=== PATIENT | female | born 1945 | race Caucasian/White ===

== ENCOUNTER 2024-11-22 11:36 | Observation (INO) | payer MEDICARE ==
--- NOTE | 2024-11-22 13:01 | CT ---
EXAMINATION TYPE: CT brain wo con DATE OF EXAM: 11/22/2024 COMPARISON: None. CLINICAL INDICATION: Female, 78 years old with history of weakness; PHH, weakness TECHNIQUE: CT scan of the head is performed without contrast. CT DLP: 1110 mGycm Automated exposure control for dose reduction was used. FINDINGS: There is no acute intracranial hemorrhage or midline shift identified. There is mild diff use ventricular and sulcal prominence consistent with diffuse age-related cerebral atrophy. There is [id number] low-attenuation in the deep and periventricular white matter most likely consiste nt with chronic small vessel ischemic change in patient of this age. Bilateral aphakia is present. Ri ght mastoid surgical change is noted. The visualized sinuses are clear. IMPRESSION: No acute intracranial hemorrhage or midline shift. There is mild diffuse age-related ce rebral atrophy and moderate to advanced probable chronic small vessel ischemic change noted. [facility], , 11/22/2024 12:59 PM
--- NOTE | 2024-11-22 13:03 | XR ---
EXAMINATION TYPE: XR chest 2V DATE OF EXAM: 11/22/2024 12:43 PM COMPARISON: None CLINICAL INDICATION: Female, 78 years old with history of Weakness, , TECHNIQUE: AP and lateral views FINDINGS: Heart borderline in size, probably accentuated due to AP technique. Mild interstitial density is pres ent. No consolidation or pleural effusion. Vertebroplasty change at multiple levels. Chronic ununited fracture proximal right humerus. IMPRESSION: Interstitial prominence. Consider bronchitis, asthma, or pulmonary vascular congestion. [facility], Workstation: [facility], 11/22/2024 1:01 PM
[2024-11-22] MEDS: diphenhydrAMINE 50 MG/ML 1 ML VIAL IVP STA (13:13)
[2024-11-22] MEDS: METOCLOPRAMIDE 5 MG/ML 2 ML VIAL IVP STA (13:15)
[2024-11-22] MEDS: DEXAMETHASONE SOD PHOSPHATE 10 MG/ML 1 ML VIAL IVP STA (13:16)
[2024-11-22 13:32] LABS: Basophils % (A) 0 %; Eosinophils # (A) 0.2 k/uL (0-0.7); Eosinophils % (A) 2 %; HCT 35.6 % (34.0-46.0); HGB 11.6 gm/dL (11.4-16.0); Lymphocytes # (A) 4.1 k/uL (1.0-4.8); Lymphocytes % (A) 31 %; MCH 30.1 pg (25.0-35.0); MCHC 32.6 g/dL (31.0-37.0); MCV 92.3 fL (80.0-100.0); Mean Platelet Volume 8.4; Monocytes # (A) 0.6 k/uL (0-1.0); Monocytes % (A) 5 %; Neutrophils % (A) 61 %; Platelet Count 395 k/uL (150-450); RBC 3.86 m/uL (3.80-5.40); RDW 14.1 % (11.5-15.5); WBC 13.1 k/uL (3.8-10.6)
[2024-11-22 13:41] LABS: Partial Thromboplastin Time 22.5 sec (22.0-30.0); Prothrombin Time 11.4 sec (10.0-12.5)
[2024-11-22 13:43] LABS: ALT 11 U/L (4-34); AST 22 U/L (14-36); African American GFR (CKD) 47 (>60 ml/min/1.73 sqM); Albumin 3.4 g/dL (3.5-5.0); Alkaline Phosphatase 104 U/L (38-126); Anion Gap 8 mmol/L; Blood Urea Nitrogen 16 mg/dL (7-17); Calcium 9.2 mg/dL (8.4-10.2); Carbon Dioxide 29 mmol/L (22-30); Chloride 101 mmol/L (98-107); Glucose 139 mg/dL (74-99); Non-African American GFR(CKD) 41 (>60 ml/min/1.73 sqM); Potassium 4.4 mmol/L (3.5-5.1); Sodium 138 mmol/L (137-145); Total Bilirubin 0.4 mg/dL (0.2-1.3); Total Protein 6.3 g/dL (6.3-8.2)
--- NOTE | 2024-11-22 13:47 | ED ---
Weakness HPI - General Chief complaint: Weakness Stated complaint: Slurred speech,Weakness Time Seen by Provider: 11/22/24 12:01 Source: patient, EMS Mode of arrival: EMS Limitations: no limitations - History of Present Illness Initial comments: 78-year-old female to the emergency department with confusion, headache. Daughter is at bedside and helps supplement the history. States that the patient just was recently hospitalized at [facility] on . She had a fall with head injury and was diagnosed with a brain bleed. They repeated several CAT scans which demonstrated no change in the bleed and the patient was discharged to a nursing facility in the [facility]. Yesterday the patient had a decline in her mental status. Daughter states that her words are trailing off when she tries to finish a sentence. She was trying to drink from the TV remote. States that it is typical for her to not know the date but this is significantly exacerbated from baseline. The patient has also been complaining of a headache for 3 days. Reports that the headache is in the occipital region. She did take some Tylenol without any improvement in her symptoms. She reports to generalized weakness. Denies any lateralizing weakness. She is incontinent. No reported fevers. No new falls. She was started on Keppra at the last hospitalization. No other alleviating, precipitating or modifying factors - Related Data Allergies Allergy/AdvReac Type Severity Reaction Status Date / Time No Known Allergies Allergy Verified 11/22/24 11:52 Review of Systems ROS Statement: Those systems with pertinent positive or pertinent negative responses have been documented in the HPI. ROS Other: All systems not noted in ROS Statement are negative. Past Medical History Past Medical History: Dementia, Diabetes Mellitus Additional Past Medical History / Comment(s): CHF History of Any Multi-Drug Resistant Organisms: None Reported Past Psychological History: No Psychological Hx Reported Smoking Status: Former smoker Past Alcohol Use History: None Reported Past Drug Use History: None Reported General Exam Limitations: no limitations Course Vital Signs 11/22/24 11/22/24 11/22/24 11:44 11:55 13:00 Temperature 98.5 F Pulse Rate 82 87 Respiratory 20 15 Rate Blood Pressure 134/71 132/63 O2 Sat by Pulse 97 Oximetry Medical Decision Making - Medical Decision Making Was pt. sent in by a medical professional or institution (, PA, NURSING SERVICE ADMINISTRATOR, urgent care, hospital, or skilled nursing...) When possible be specific @ -[No] Did you speak to anyone other than the patient for history (EMS, parent, family, police, friend...)? What history was obtained from this source @ -[No] Did you review nursing and triage notes (agree or disagree)? Why? @ -[I reviewed and agree with nursing and triage notes] Were old charts reviewed (outside hosp., previous admission, EMS record, old EKG, old radiological studies, urgent care reports/EKG's, skilled nursing records)? Report findings @ -[No old charts were reviewed] Differential Diagnosis (chest pain, altered mental status, abdominal pain women, abdominal pain men, vaginal bleeding, weakness, fever, dyspnea, syncope, headache, dizziness, GI bleed, back pain, seizure, CVA, palpatations, mental health, musculoskeletal)? @ -[not applicable] EKG interpreted by me (3pts min.). @ -Yes and demonstrates sinus rhythm with a rate of 83. Parable 184. QRS 143. QTc of 459. Left anterior fascicular block. Right bundle branch block. No acute ST segment elevations X-rays interpreted by me (1pt min.). @ -[None done] CT interpreted by me (1pt min.). @ -[None done] U/S interpreted by me (1pt. min.). @ -[None done] What testing was considered but not performed or refused? (CT, X-rays, U/S, labs)? Why? @ -[None] What meds were considered but not given or refused? Why? @ -[None] Did you discuss the management of the patient with other professionals (professionals i.e. , PA, NURSING SERVICE ADMINISTRATOR, lab, RT, psych nurse, medical social consultant, roving weight gauger, teacher, aadc plans staff officer, geriatric case manager)? Give summary @ -[No] Was smoking cessation discussed for >3mins.? @ -[No] Was critical care preformed (if so, how long)? @ -[No] Were there social determinants of health that impacted care today? How? (Homelessness, low income, unemployed, alcoholism, drug addiction, transportation, low edu. Level, literacy, decrease access to med. care, alf, rehab)? @ -[No] Was there de-escalation of care discussed even if they declined (Discuss DNR or withdrawal of care, Hospice)? DNR status @ -[No] What co-morbidities impacted this encounter? (DM, HTN, Smoking, COPD, CAD, Cancer, CVA, ARF, Chemo, Hep., AIDS, mental health diagnosis, sleep apnea, morbid obesity)? @ -[None] Was patient admitted / discharged? Hospital course, mention meds given and rou te, prescriptions, significant lab abnormalities, going to OR and other pertinent info. @ -[hospital course] Undiagnosed new problem with uncertain prognosis? @ -[No] Drug Therapy requiring intensive monitoring for toxicity (Heparin, Nitro, Insulin, Cardizem)? @ -[No] Were any procedures done? @ -[No] Diagnosis/symptom? @ -[default] Acute, or Chronic, or Acute on Chronic? @ -[default] Uncomplicated (without systemic symptoms) or Complicated (systemic symptoms)? @ -[default] Side effects of treatment? @ -[No] Exacerbation, Progression, or Severe Exacerbation? @ -[No] Poses a threat to life or bodily function? How? (Chest pain, USA, PA, pneumonia, PE, COPD, DKA, ARF, appy, cholecystitis, CVA, Diverticulitis, Homicidal, Suicidal, threat to staff... and all critical care pts) @ -[No] - Lab Data Result diagrams: 11/22/24 13:12 11/22/24 13:12 Lab Results 11/22/24 11/22/24 11/22/24 Range/Units 13:12 13:12 13:12 WBC 13.1 H (3.8-10.6) k/uL RBC 3.86 (3.80-5.40) m/uL Hgb 11.6 (11.4-16.0) gm/dL Hct 35.6 (34.0-46.0) % MCV 92.3 (80.0-100.0) fL MCH 30.1 (25.0-35.0) pg MCHC 32.6 (31.0-37.0) g/dL RDW 14.1 (11.5-15.5) % Plt Count 395 (150-450) k/uL MPV 8.4 Neutrophils % 61 % Lymphocytes % 31 % Monocytes % 5 % Eosinophils % 2 % Basophils % 0 % Neutrophils # 8.0 H (1.3-7.7) k/uL Lymphocytes # 4.1 (1.0-4.8) k/uL Monocytes # 0.6 (0-1.0) k/uL Eosinophils # 0.2 (0-0.7) k/uL Basophils # 0.0 (0-0.2) k/uL PT 11.4 (10.0-12.5) sec INR 1.0 (<1.2) APTT 22.5 (22.0-30.0) sec Sodium 138 (137-145) mmol/L Potassium 4.4 (3.5-5.1) mmol/L Chloride 101 (98-107) mmol/L Carbon Dioxide 29 (22-30) mmol/L Anion Gap 8 mmol/L BUN 16 (7-17) mg/dL Creatinine 1.27 H (0.52-1.04) mg/dL Est GFR (CKD-EPI)AfAm 47 (>60 ml/min/1.73 sqM) Est GFR (CKD-EPI)NonAf 41 (>60 ml/min/1.73 sqM) Glucose 139 H (74-99) mg/dL Plasma Lactic Acid Prabhu (0.7-2.0) mmol/L Calcium 9.2 (8.4-10.2) mg/dL Total Bilirubin 0.4 (0.2-1.3) mg/dL AST 22 (14-36) U/L ALT 11 (4-34) U/L Alkaline Phosphatase 104 (38-126) U/L Troponin I (0.000-0.034) ng/mL Total Protein 6.3 (6.3-8.2) g/dL Albumin 3.4 L (3.5-5.0) g/dL 11/22/24 11/22/24 Range/Units 13:12 13:12 WBC (3.8-10.6) k/uL RBC (3.80-5.40) m/uL Hgb (11.4-16.0) gm/dL Hct (34.0-46.0) % MCV (80.0-100.0) fL MCH (25.0-35.0) pg MCHC (31.0-37.0) g/dL RDW (11.5-15.5) % Plt Count (150-450) k/uL MPV Neutrophils % % Lymphocytes % % Monocytes % % Eosinophils % % Basophils % % Neutrophils # (1.3-7.7) k/uL Lymphocytes # (1.0-4.8) k/uL Monocytes # (0-1.0) k/uL Eosinophils # (0-0.7) k/uL Basophils # (0-0.2) k/uL PT (10.0-12.5) sec INR (<1.2) APTT (22.0-30.0) sec Sodium (137-145) mmol/L Potassium (3.5-5.1) mmol/L Chloride (98-107) mmol/L Carbon Dioxide (22-30) mmol/L Anion Gap mmol/L BUN (7-17) mg/dL Creatinine (0.52-1.04) mg/dL Est GFR (CKD-EPI)AfAm (>60 ml/min/1.73 sqM) Est GFR (CKD-EPI)NonAf (>60 ml/min/1.73 sqM) Glucose (74-99) mg/dL Plasma Lactic Acid Prabhu 3.0 H* (0.7-2.0) mmol/L Calcium (8.4-10.2) mg/dL Total Bilirubin (0.2-1.3) mg/dL AST (14-36) U/L ALT (4-34) U/L Alkaline Phosphatase (38-126) U/L Troponin I <0.012 (0.000-0.034) ng/mL Total Protein (6.3-8.2) g/dL Albumin (3.5-5.0) g/dL Disposition Clinical Impression: Encephalopathy acute, Dysarthria Disposition: ADMITTED IP TO THIS [facility] Condition: Stable Is patient prescribed a controlled substance at d/c from ED?: No Referrals: Nonstaff,Physician [REFERRING] - 1-2 days Time of Disposition: 14:55 Decision to Admit Reason: Admit from EC Decision Date: 11/22/24 Decision Time: 14:55
[2024-11-22] MEDS ORDERED: ACETAMINOPHEN TAB 325 MG TAB PO PRN (15:30)
[2024-11-22] MEDS ORDERED: NALOXONE 0.4 MG/ML 1 ML VIAL IV PRN (15:30)
[2024-11-22 18:01] LABS: Appearance,Urine Cloudy (Clear); Bacteria,Urine Many /hpf; Bilirubin,Urine Negative (Negative); Blood,Urine Negative (Negative); Color,Urine Yellow; Glucose,Urine (UA) Negative (Negative); Ketones,Urine Negative (Negative); Leukocyte Esterase,Urine Negative (Negative); Mucus,Urine Rare /hpf; Nitrite,Urine Negative (Negative); PH, Urine 5.5 (5.0-8.0); Protein,Urine Trace (Negative); RBC,Urine 1 /hpf (0-5); Specific Gravity,Urine 1.034 (1.001-1.035); Squamous Epithelial Cell,Urine 1 /hpf (0-4); Urobilinogen,Urine <2.0 mg/dL (<2.0); WBC,Urine 4 /hpf (0-5)
--- NOTE | 2024-11-22 19:38 | P.HPIM ---
History of Present Illness This is a pleasant 78 years old female who presents from home with her daughter at bedside which has been with a history. Patient presents because she fell from standing position on Tuesday and hit her head show went to [facility] mother found her to have a small bleed and she stayed in the hospital for 5 days, Also patient had difficulty walking and attributed to her to bad knees Medicare immobile without assistance but after she was sent home she was more confused although this was noticed since September when she had her back surgery that is why her daughter put her on assisted complex where they have a skilled nu rse and they were planning to follow-up with orthopedic team to fix her knee so we will be able to walk again Yesterday patient became really confused, she was picking the phone thinking its aggressive water trying to drink from it and also she was confused to the surrounding. The daughter felt she is really not herself so she brought her to the hospital Now she is fully awake and alert she thinks she is in [facility] she has a lot of disoriented towards time and person However she is appropriate she denies any double vision or slurred speech She complains from weakness in the right upper extremity but this is a chronic also per daughter from her shoulder problem On exam also it is noted that she has stiffness and weakness in her right lower extremity and the patient noticed a this is noted . Patient is afebrile hemodynamically stable. Labs were unremarkable, she has mild leukocytosis of 13.1 and mild creatinine elevation 1.[address] of the brain showing no mass hemorrhage or acute proces Chest x-ray showing interstitial prominence suspicious for bronchitis versus asthma or fluid overload Review of Systems Review of systems CONSTITUTIONAL: No fever, no malaise, no fatigue. HEENT: No recent visual problems or hearing problems. Denied any sore throat. CARDIOVASCULAR: No orthopnea, PND, no palpitations, no syncope. PULMONARY: No shortness of breath, no cough, no hemoptysis. GASTROINTESTINAL: No diarrhea, no nausea, no vomiting, no abdominal pain. Normoactive bowel sounds. NEUROLOGICAL: No headaches, no weakness, no numbness. HEMATOLOGICAL: Denies any bleeding or petechiae. GENITOURINARY: Denies any burning micturition, frequency, or urgency. MUSCULOSKELETAL/RHEUMATOLOGICAL: Denies any joint pain, swelling, or any muscle pain. ENDOCRINE: Denies any polyuria or polydipsia. Past Medical History Past Medical History: Dementia, Diabetes Mellitus Additional Past Medical History / Comment(s): CHF History of Any Multi-Drug Resistant Organisms: None Reported Past Psychological History: No Psychological Hx Reported Smoking Status: Former smoker Past Alcohol Use History: None Reported Past Drug Use History: None Reported Medications and Allergies Home Medications Medication Instructions Recorded Confirmed Type Acetaminophen Tab [Tylenol Tab] 1,000 mg PO Q6HR PRN 11/22/24 11/22/24 History Cholecalciferol [Vitamin D3 (25 50 mcg PO DAILY 11/22/24 11/22/24 History Mcg = 1000 Iu)] Furosemide [Lasix] 20 mg PO MOWEFR 11/22/24 11/22/24 History Nortriptyline [Pamelor] 25 mg PO HS 11/22/24 11/22/24 History Omeprazole [PriLOSEC] 40 mg PO DAILY 11/22/24 11/22/24 History Simvastatin [Zocor] 20 mg PO HS 11/22/24 11/22/24 History carvediloL [Coreg] 3.125 mg PO BID 11/22/24 11/22/24 History levETIRAcetam [Keppra] 500 mg PO Q12HR 11/22/24 11/22/24 History Allergies Allergy/AdvReac Type Severity Reaction Status Date / Time No Known Allergies Allergy Verified 11/22/24 16:38 Physical Exam Vitals: Vital Signs Temp Pulse Resp BP Pulse Ox 11/22/24 19:01 98.3 F 96 15 109/59 96 11/22/24 17:08 86 24 140/60 94 L 11/22/24 15:28 85 16 124/61 94 L 11/22/24 13:00 87 15 132/63 97 11/22/24 11:55 82 20 134/71 11/22/24 11:44 98.5 F Intake and Output 11/22/24 11/22/24 11/22/24 06:59 14:59 22:59 Other: Weight 60.781 kg GENERAL: The patient is alert and oriented x3, not in any acute distress. Well developed, well nourished. HEENT: Pupils are round and equally reacting to light. EOMI. No scleral icterus. No conjunctival pallor. Normocephalic, atraumatic. No pharyngeal erythema. No thyromegaly. CARDIOVASCULAR: S1 and S2 present. No murmurs, rubs, or gallops. PULMONARY: Chest is clear to auscultation, no wheezing , no crackles. ABDOMEN: Soft, nontender, nondistended, normoactive bowel sounds. No palpable organomegaly. MUSCULOSKELETAL: No joint swelling or deformity. EXTREMITIES: No cyanosis, clubbing, or pedal edema. NEUROLOGICAL: Gross neurological examination did not reveal any focal deficits. Right arm weak, chronic per patient family, right leg weak, leg 3/5 on the right leg and 5/5 on the left leg. SKIN: No rashes. no petechiae. Results CBC & Chem 7: 11/22/24 13:12 11/22/24 13:12 Labs: Abnormal Lab Results - Last 24 Hours (Table) 11/22/24 11/22/24 11/22/24 Range/Units 13:12 13:12 13:12 WBC 13.1 H (3.8-10.6) k/uL Neutrophils # 8.0 H (1.3-7.7) k/uL Creatinine 1.27 H (0.52-1.04) mg/dL Glucose 139 H (74-99) mg/dL Plasma Lactic Acid Prabhu 3.0 H* (0.7-2.0) mmol/L Albumin 3.4 L (3.5-5.0) g/dL Urine Appearance (Clear) Urine Protein (Negative) Urine Bacteria (None) /hpf Urine Mucus (None) /hpf 11/22/24 Range/Units 17:28 WBC (3.8-10.6) k/uL Neutrophils # (1.3-7.7) k/uL Creatinine (0.52-1.04) mg/dL Glucose (74-99) mg/dL Plasma Lactic Acid Prabhu (0.7-2.0) mmol/L Albumin (3.5-5.0) g/dL Urine Appearance Cloudy H (Clear) Urine Protein Trace H (Negative) Urine Bacteria Many H (None) /hpf Urine Mucus Rare H (None) /hpf Assessment and Plan Assessment: Altered mental status could be metabolic encephalopathy. Patient reports recent brain bleed but CT of the brain is negative. Stroke also in the differential diagnosis. rlo seizure Right lower extremity weakness Right upper extremity weakness chronic per patient and family seizure disorder on [facility] Mild leukocytosis Mild acute kidney injury with unknown baseline. Generalized weakness Plan: Continue with neurocheck Follow-up [facility] Neurology team consult Labs and medication were reviewed.. Continue same treatment. Continue with symptomatic treatment. Resume home medication. Monitor labs and vitals. DVT and GI prophylaxis. Further recommendation mechanical GI Prophylaxis: Pepcid PT/OT: Pending Prognosis is guarded
[2024-11-22 20:09] LABS: Glucose,Whole Blood 263 mg/dL (70-110)
[2024-11-22] MEDS: FAMOTIDINE 20 MG/2 ML VIAL IV SCH (20:22)
[2024-11-22] MEDS: levETIRAcetam 500 MG TAB PO SCH (20:22)
[2024-11-22] MEDS: carvediloL 3.125 MG TAB PO SCH (20:22)
[2024-11-23 05:40] LABS: African American GFR (CKD) 54 (>60 ml/min/1.73 sqM); Anion Gap 8 mmol/L; Blood Urea Nitrogen 16 mg/dL (7-17); Calcium 9.1 mg/dL (8.4-10.2); Carbon Dioxide 27 mmol/L (22-30); Chloride 102 mmol/L (98-107); Glucose 168 mg/dL (74-99); Non-African American GFR(CKD) 47 (>60 ml/min/1.73 sqM); Potassium 4.8 mmol/L (3.5-5.1); Sodium 137 mmol/L (137-145)
[2024-11-23 06:13] LABS: Basophils % (A) 0 %; Eosinophils % (A) 0 %; HCT 38.3 % (34.0-46.0); HGB 11.8 gm/dL (11.4-16.0); Hypochromasia Slight; Lymphocytes # (A) 2.8 k/uL (1.0-4.8); Lymphocytes % (A) 25 %; MCH 29.6 pg (25.0-35.0); MCHC 30.9 g/dL (31.0-37.0); MCV 95.7 fL (80.0-100.0); Mean Platelet Volume 7.8; Monocytes # (A) 0.3 k/uL (0-1.0); Monocytes % (A) 3 %; Neutrophils # (A) 8.1 k/uL (1.3-7.7); Neutrophils % (A) 72 %; Platelet Count 381 k/uL (150-450); RDW 13.6 % (11.5-15.5); WBC 11.4 k/uL (3.8-10.6)
[2024-11-23 07:18] LABS: Glucose,Whole Blood 139 mg/dL (70-110)
[2024-11-23] MEDS: FUROSEMIDE 20 MG TAB PO SCH (08:42)
[2024-11-23] MEDS: CHOLECALCIFEROL 25 MCG (1000 IU) TABLET PO SCH (08:43)
[2024-11-23 12:29] LABS: Glucose,Whole Blood 148 mg/dL (70-110)
--- NOTE | 2024-11-23 15:30 | P.PN ---
Subjective Progress Note Date: 11/23/24 This is a pleasant 78 years old female who presents from home with her daughter at bedside which has been with a history. Patient presents because she fell from standing position on Tuesday and hit her head show went to [facility] mother found her to have a small bleed and she stayed in the hospital for 5 days, Also patient had difficulty walking and attributed to her to bad knees Medicare immobile without assistance but after she was sent home she was more confused although this was noticed since September when she had her back surgery that is why her daughter put her on senior care complex where they have a skilled nurse and they were planning to follow-up with orthopedic team to fix her knee so we will be able to walk again Yesterday patient became really confused, she was picking the phone thinking its aggressive water trying to drink from it and also she was confused to the surrounding. The daughter felt she is really not herself so she brought her to the hospital Now she is fully awake and alert she thinks she is in [facility] she has a lot of disoriented towards time and person However she is appropriate she denies any double vision or slurred speech She complains from weakness in the right upper extremity but this is a chronic also per daughter from her shoulder problem On exam also it is noted that she has stiffness and weakness in her right lower extremity and the patient noticed a this is noted . Patient is afebrile hemodynamically stable. Labs were unremarkable, she has mild leukocytosis of 13.1 and mild creatinine elevation 1.[address] of the brain showing no mass hemorrhage or acute proces Chest x-ray showing interstitial prominence suspicious for bronchitis versus asthma or fluid overload 11/23. Patient seen and examined. Mental status has improved, family at the bedside, state patient is still having difficulty in word finding. REVIEW OF SYSTEMS: CONSTITUTIONAL: No fever, no malaise,. CARDIOVASCULAR: No chest pain, no palpitations, no syncope. PULMONARY: No shortness of breath, no cough, GASTROINTESTINAL: No diarrhea, no nausea, no vomiting, no abdominal pain. NEUROLOGICAL: No headaches, no weakness, PHYSICAL EXAMINATION: GENERAL: The patient is alert and oriented x3, not in any acute distress. Well developed, well nourished. HEENT: Pupils are round and equally reacting to light. EOMI. No scleral icterus. No conjunctival pallor. Normocephalic, atraumatic. No pharyngeal erythema. No thyromegaly. CARDIOVASCULAR: S1 and S2 present. No murmurs, rubs, or gallops. PULMONARY: Chest is clear to auscultation, no wheezing or crackles. ABDOMEN: Soft, nontender, nondistended, normoactive bowel sounds. No palpable organomegaly. MUSCULOSKELETAL: No joint swelling or deformity. EXTREMITIES: No cyanosis, clubbing, or pedal edema. NEUROLOGICAL: Gross neurological examination did not reveal any focal deficits. SKIN: No rashes. Assessment and plan Acute metabolic encephalopathy Right lower extremity weakness Right upper extremity weakness chronic per patient and family seizure disorder on keppra Mild leukocytosis Mild acute kidney injury with unknown baseline. Generalized weakness Monitor vital signs Monitor CBC Monitor CMP Fall precaution Seizure precaution Continue Keppra Neurology consulted PT OT consulted Labs and medication were reviewed.. Continue same treatment. Continue with symptomatic treatment. Resume home medication. Monitor labs and vitals. DVT and GI prophylaxis. Further recommendations as per clinical course of the patient Dictation was produced using [employer] dictation software. please excuse any grammatical, word or spelling errors. Objective - Vital Signs Vital signs: Vital Signs Temp 97 F L 11/23/24 07:12 Pulse 87 11/23/24 07:12 Resp 18 11/23/24 07:12 BP 91/59 11/23/24 07:12 Pulse Ox 97 11/23/24 09:01 FiO2 Intake & Output 11/22/24 11/23/24 11/23/24 18:59 06:59 18:59 Output Total 547 Balance -547 Weight 60.781 kg 60.781 kg Output: Urine 500 Straight 500 Post Void Residual 47 Other: Voiding Method Diaper Incontinent # Voids 0 - Labs CBC & Chem 7: 11/23/24 04:50 11/23/24 04:50 Labs: Abnormal Lab Results - Last 24 Hours (Table) 11/22/24 11/22/24 11/22/24 Range/Units 13:12 13:12 13:12 WBC 13.1 H (3.8-10.6) k/uL MCHC (31.0-37.0) g/dL Neutrophils # 8.0 H (1.3-7.7) k/uL Creatinine 1.27 H (0.52-1.04) mg/dL Glucose 139 H (74-99) mg/dL POC Glucose (mg/dL) (70-110) mg/dL Plasma Lactic Acid Prabhu 3.0 H* (0.7-2.0) mmol/L Albumin 3.4 L (3.5-5.0) g/dL Urine Appearance (Clear) Urine Protein (Negative) Urine Bacteria (None) /hpf Urine Mucus (None) /hpf Levetiracetam (3.0-60.0) ug/mL 11/22/24 11/22/24 11/22/24 Range/Units 13:12 17:28 20:08 WBC (3.8-10.6) k/uL MCHC (31.0-37.0) g/dL Neutrophils # (1.3-7.7) k/uL Creatinine (0.52-1.04) mg/dL Glucose (74-99) mg/dL POC Glucose (mg/dL) 263 H (70-110) mg/dL Plasma Lactic Acid Prabhu (0.7-2.0) mmol/L Albumin (3.5-5.0) g/dL Urine Appearance Cloudy H (Clear) Urine Protein Trace H (Negative) Urine Bacteria Many H (None) /hpf Urine Mucus Rare H (None) /hpf Levetiracetam 60.6 H (3.0-60.0) ug/mL 11/23/24 11/23/24 11/23/24 Range/Units 04:50 04:50 07:16 WBC 11.4 H (3.8-10.6) k/uL MCHC 30.9 L (31.0-37.0) g/dL Neutrophils # 8.1 H (1.3-7.7) k/uL Creatinine 1.13 H (0.52-1.04) mg/dL Glucose 168 H (74-99) mg/dL POC Glucose (mg/dL) 139 H (70-110) mg/dL Plasma Lactic Acid Prabhu (0.7-2.0) mmol/L Albumin (3.5-5.0) g/dL Urine Appearance (Clear) Urine Protein (Negative) Urine Bacteria (None) /hpf Urine Mucus (None) /hpf Levetiracetam (3.0-60.0) ug/mL
[2024-11-23 17:16] LABS: Glucose,Whole Blood 176 mg/dL (70-110)
[2024-11-23 20:50] LABS: Glucose,Whole Blood 170 mg/dL (70-110)
[2024-11-23 21:22] LABS: T4, Free (Free Thyroxine) 0.94 ng/dL (0.78-2.19)
[2024-11-23] MEDS: NORTRIPTYLINE 25 MG CAP PO SCH (22:00)
[2024-11-23] MEDS: ATORVASTATIN 10 MG TAB PO SCH (22:00)
[2024-11-24 07:16] LABS: Glucose,Whole Blood 121 mg/dL (70-110)
[2024-11-24] MEDS: PANTOPRAZOLE 40 MG TABLET PO SCH (09:00)
--- NOTE | 2024-11-24 09:24 | P.CNNES ---
History of Present Illness Consult date: 11/23/24 Requesting physician: Jud Barger Reason for Consult: acute encephalopathy, dysarthria History of Present Illness: Patient is a 78-year-old right-handed female came to the hospital by ambulance yesterday at 11:36 AM for altered mental status. Patient's sister was also present, who also provided with a history. Patient's neurological symptoms started after she underwent egg surgery in September 2024. She was hospitalized for a week. She was somewhat confused, disoriented and would say something not remembers what she said, and a lot of time did not make sense. She then fell on the [place] brad and was admitted to [facility] for 1 week for intracranial bleed, which was treated conservatively. She was transferred to assisted living and has been living in there since then. Her condition got further worse on 11/20/2024 when she only wanted to sleep. The next day on November 21, she was crying hysterically and was very scared. Her Sister Rosario came over and calm her down. Her blood pressure was 112/78, and she was thinking that she was in [place]. At that time she had some slurring, not making sense. She was acting confused, drinking directly from the bowl, or she was drinking out of the sleeve of her shirt. She was aware that she was doing that, trying to say words correctly but struggles. Patient's sister mentions that prior to her back surgery, she was perfectly normal. No prior history of dementia. She is confused off and on, sees something out of norm. As per EMS flowsheet when they arrived, patient was noted to have began feeling weaker with some increased confusion and difficulty in putting together full sentences without mixing up her words since the night prior about 7 PM. Patient notes feeling weak and confused and noted a headache for the past 2 weeks which family noted she has fallen with a brain bleed the day before Jimy which is around when the headache started. Patient does have right arm drift but patient has very bad right shoulder which may be the cause. Patient's blood pressure was 152/55, pulse rate 80, respirations 16, saturation 97%. Blood test shows WBC 13.1, normal hemoglobin and platelets. PT PTT normal. Basic metabolic panel, hepatic panel is normal. BUN 16 creatinine 1.27, slightly elevated. Lactate 3.0. Troponin negative. UA negative. Keppra 60.6. (3-60) Chest x-ray shows interstitial prominence. Consider bronchitis, asthma or pulmonary vascular congestion. CT head revealed no acute intracranial process. There is mild diffuse age-related cerebral atrophy and moderate to advanced chronic small vessel ischemic change. EKG showed sinus rhythm. Patient takes Keppra 500 mg every 12 hours, nortriptyline 25 mg at bedtime, simvastatin 20 mg, Coreg, Lasix and vitamin D. Patient has been on Keppra since she had a traumatic intracranial bleed on . She was released on . Review of Systems All pertinent positive and negative review of systems mentioned in the HPI. Past Medical History Past Medical History: Dementia, Diabetes Mellitus Additional Past Medical History / Comment(s): CHF History of Any Multi-Drug Resistant Organisms: None Reported Past Psychological History: No Psychological Hx Reported Smoking Status: Former smoker Past Alcohol Use History: None Reported Past Drug Use History: None Reported Medications and Allergies Home Medications Medication Instructions Recorded Confirmed Type Acetaminophen Tab [Tylenol Tab] 1,000 mg PO Q6HR PRN 11/22/24 11/22/24 History Cholecalciferol [Vitamin D3 (25 50 mcg PO DAILY 11/22/24 11/22/24 History Mcg = 1000 Iu)] Furosemide [Lasix] 20 mg PO MOWEFR 11/22/24 11/22/24 History Nortriptyline [Pamelor] 25 mg PO HS 11/22/24 11/22/24 History Omeprazole [PriLOSEC] 40 mg PO DAILY 11/22/24 11/22/24 History Simvastatin [Zocor] 20 mg PO HS 11/22/24 11/22/24 History carvediloL [Coreg] 3.125 mg PO BID 11/22/24 11/22/24 History levETIRAcetam [Keppra] 500 mg PO Q12HR 11/22/24 11/22/24 History Allergies Allergy/AdvReac Type Severity Reaction Status Date / Time No Known Allergies Allergy Verified 11/22/24 16:38 Physical Examination - Vital Signs Vital Signs: Vital Signs Temp Pulse Pulse Resp BP BP Pulse Ox 11/23/24 11:56 98.3 F 79 15 129/82 98 11/23/24 09:01 97 11/23/24 08:00 87 18 11/23/24 07:12 97 F L 87 18 91/59 99 11/23/24 02:00 97.8 F 81 16 125/70 95 11/22/24 20:00 97.4 F L 96 16 101/63 94 L 11/22/24 19:40 96 16 11/22/24 19:01 98.3 F 96 15 109/59 96 11/22/24 17:08 86 24 140/60 94 L Intake and Output 11/23/24 11/23/24 11/23/24 06:59 14:59 22:59 Output Total 500 300 Balance -500 -300 Output: Urine 500 300 Straight 500 Post Void Residual 0 Other: Voiding Method Diaper Incontinent # Voids 0 Patient is an elderly female, in no acute distress. Patient is alert awake, but confused. Patient knows it is November, but thinks it is 1945 then she realized that is her birthday. On asking which [place] just passed by, patient states Thanks. She knows that Mr. Voss is the president and Solitario is going to be the next. She states that she lives in [facility] although she actually lives in [place]. Patient knows that she is in [facility], but calls it "[facility]". Patient can name and repeat very well. Patient sometimes has paraphasic errors. No obvious dysarthria. Patient has positive palmomental reflex on the left, negative visual spatial apraxia. Attention, concentration is intact and fund of knowledge is quite limited. On cranial nerve examination, pupils are equal, round and reacting to light, visual hassan are full on confrontation, with no neglect on double simultaneous stimulation. Extraocular muscles are intact with no nystagmus. Face is symmetric, tongue protrudes to the midline. Palatal elevation and sensation normal, hearing and shoulder shrug normal, facial sensation normal. On muscle strength testing, there hide right shoulder is chronically weak from rotator cuff issues. Therefore the right arm drifts. However the biceps, triceps and english tutor are normal bilaterally and the left deltoid is normal. In the lower limbs, hip flexion is 4+ bilaterally, ankle dorsiflexion 5. Deep tendon reflexes are symmetric 1+ and plantars are flat. Sensory to touch is equal with no neglect on double simultaneous stimulation. Cerebellar function showed no ataxia for [id number] testing. No dysdiadochokinesia. No ataxia for dhyn-sg-[id number] testing on either side. Tone and bulk of muscles normal. Gait deferred.. On general examination, there is no carotid bruit or murmur, S1-S2 audible. Chest is clear on consultation. Abdomen is soft nontender. No organomegaly, bowel sounds present. Peripheral pulses are present. No peripheral edema. Results - Laboratory Findings CBC and BMP: 11/23/24 04:50 11/23/24 04:50 Abnormal Lab Findings: Abnormal Labs 11/22/24 11/22/24 11/22/24 13:12 13:12 13:12 WBC 13.1 H MCHC Neutrophils # 8.0 H Creatinine 1.27 H Glucose 139 H POC Glucose (mg/dL) Plasma Lactic Acid Prabhu 3.0 H* Albumin 3.4 L Urine Appearance Urine Protein Urine Bacteria Urine Mucus Levetiracetam 11/22/24 11/22/24 11/22/24 13:12 17:28 20:08 WBC MCHC Neutrophils # Creatinine Glucose POC Glucose (mg/dL) 263 H Plasma Lactic Acid Parbhu Albumin Urine Appearance Cloudy H Urine Protein Trace H Urine Bacteria Many H Urine Mucus Rare H Levetiracetam 60.6 H 11/23/24 11/23/24 11/23/24 04:50 04:50 07:16 WBC 11.4 H MCHC 30.9 L Neutrophils # 8.1 H Creatinine 1.13 H Glucose 168 H POC Glucose (mg/dL) 139 H Plasma Lactic Acid Prabhu Albumin Urine Appearance Urine Protein Urine Bacteria Urine Mucus Levetiracetam 11/23/24 12:27 WBC MCHC Neutrophils # Creatinine Glucose POC Glucose (mg/dL) 148 H Plasma Lactic Acid Prabhu Albumin Urine Appearance Urine Protein Urine Bacteria Urine Mucus Levetiracetam Assessment and Plan Assessment: * Altered mental status, with cognitive decline going on since back surgery in September 2024. Recently cognitive functions became much worse in the last few days. Exact cause uncertain, rule out CVA, rule out delirium/dementia. Rule out other metabolic causes. Examination is relatively nonfocal. * Diabetes * Hyperlipidemia * History of back surgery * History of traumatic intracranial bleed 11/06/2024, treated conservatively Plan: * MRI of the brain without contrast, rule out CVA, or other structural abnormalities * EEG evaluate for encephalopathy, rule out any epileptiform activity * B12, folate, TSH * Discussed with patient's sister in detail. * Neurology will follow. Thank you for the consult. Time with Patient: Greater than 30
[2024-11-24] MEDS: HEPARIN SODIUM,PORCINE 5,000 UNIT/ML 1 ML VIAL SQ SCH (11:19)
[2024-11-24 11:34] LABS: ALT 11 U/L (4-34); AST 19 U/L (14-36); African American GFR (CKD) 56 (>60 ml/min/1.73 sqM); Albumin 3.1 g/dL (3.5-5.0); Albumin/Globulin Ratio 1.1; Alkaline Phosphatase 105 U/L (38-126); Anion Gap 6 mmol/L; Blood Urea Nitrogen 23 mg/dL (7-17); Carbon Dioxide 30 mmol/L (22-30); Chloride 102 mmol/L (98-107); Globulin 2.9 g/dL; Glucose 153 mg/dL (74-99); Non-African American GFR(CKD) 49 (>60 ml/min/1.73 sqM); Potassium 4.1 mmol/L (3.5-5.1); Sodium 138 mmol/L (137-145); Total Bilirubin 0.1 mg/dL (0.2-1.3)
[2024-11-24 11:36] LABS: Basophils # (A) 0.1 k/uL (0-0.2); Basophils % (A) 1 %; Eosinophils # (A) 0.4 k/uL (0-0.7); Eosinophils % (A) 2 %; HCT 36.4 % (34.0-46.0); HGB 11.7 gm/dL (11.4-16.0); Lymphocytes # (A) 5.5 k/uL (1.0-4.8); Lymphocytes % (A) 37 %; MCV 93.8 fL (80.0-100.0); Mean Platelet Volume 7.5; Monocytes # (A) 0.7 k/uL (0-1.0); Monocytes % (A) 5 %; Neutrophils # (A) 8.1 k/uL (1.3-7.7); Neutrophils % (A) 55 %; Platelet Count 390 k/uL (150-450); RBC 3.89 m/uL (3.80-5.40); RDW 14.1 % (11.5-15.5); WBC 14.9 k/uL (3.8-10.6)
[2024-11-24 11:38] LABS: Glucose,Whole Blood 143 mg/dL (70-110)
--- NOTE | 2024-11-24 13:09 | P.PN ---
Subjective Progress Note Date: 11/24/24 This is a pleasant 78 years old female who presents from home with her daughter at bedside which has been with a history. Patient presents because she fell from standing position on Tuesday and hit her head show went to [facility] mother found her to have a small bleed and she stayed in the hospital for 5 days, Also patient had difficulty walking and attributed to her to bad knees Medicare immobile without assistance but after she was sent home she was more confused although this was noticed since September when she had her back surgery that is why her daughter [facility] have [facility] skilled nurse and they were planning to follow-up with orthopedic team to fix her knee so we will be able to walk again Yesterday patient became really confused, she was picking the phone thinking its aggressive water trying to drink from it and also she was confused to the surrounding. The daughter felt she is really not herself so she brought her to the hospital Now she is fully awake and alert she thinks she is in [facility] she has a lot of disoriented towards time and person However she is appropriate she denies any double vision or slurred speech She complains from weakness in the right upper extremity but this is a chronic also per daughter from her shoulder problem On exam also it is noted that she has stiffness and weakness in her right lower extremity and the patient noticed a this is noted . Patient is afebrile hemodynamically stable. Labs were unremarkable, she has mild leukocytosis of 13.1 and mild creatinine elevation 1.[address] of the brain showing no mass hemorrhage or acute proces Chest x-ray showing interstitial prominence suspicious for bronchitis versus asthma or fluid overload 11/23. Patient seen and examined. Mental status has improved, family at the bedside, state patient is still having difficulty in word finding. 11/24. Patient seen and examined. Neurology evaluated, ordered MRI brain and EEG. Family at the bedside state patient is slightly doing better, no evidence of any slurred speech. Patient still has word finding difficulty REVIEW OF SYSTEMS: CONSTITUTIONAL: No fever, no malaise,. CARDIOVASCULAR: No chest pain, no palpitations, no syncope. PULMONARY: No shortness of breath, no cough, GASTROINTESTINAL: No diarrhea, no nausea, no vomiting, no abdominal pain. NEUROLOGICAL: No headaches, no weakness, PHYSICAL EXAMINATION: GENERAL: The patient is alert and oriented x3, not in any acute distress. Well developed, well nourished. HEENT: Pupils are round and equally reacting to light. EOMI. No scleral icterus. No conjunctival pallor. Normocephalic, atraumatic. No pharyngeal erythema. No thyromegaly. CARDIOVASCULAR: S1 and S2 present. No murmurs, rubs, or gallops. PULMONARY: Chest is clear to auscultation, no wheezing or crackles. ABDOMEN: Soft, nontender, nondistended, normoactive bowel sounds. No palpable organomegaly. MUSCULOSKELETAL: No joint swelling or deformity. EXTREMITIES: No cyanosis, clubbing, or pedal edema. NEUROLOGICAL: Gross neurological examination did not reveal any focal deficits. SKIN: No rashes. Assessment and plan Acute metabolic encephalopathy Right lower extremity weakness Right upper extremity weakness chronic per patient and family seizure disorder on keppra Mild leukocytosis Mild acute kidney injury with unknown baseline. Generalized weakness Monitor vital signs Monitor CBC Monitor CMP Fall precaution Seizure precaution Continue Keppra EEG ordered MRI brain ordered Neurology following PT OT consulted Labs and medication were reviewed.. Continue same treatment. Continue with symptomatic treatment. Resume home medication. Monitor labs and vitals. DVT and GI prophylaxis. Further recommendations as per clinical course of the pat ient Dictation was produced using [employer] dictation software. please excuse any grammatical, word or spelling errors. Objective - Vital Signs Vital signs: Vital Signs Temp 97.5 F L 11/24/24 07:02 Pulse 98 11/24/24 07:02 Resp 14 11/24/24 08:00 BP 100/64 11/24/24 07:02 Pulse Ox 100 11/24/24 07:02 FiO2 Intake & Output 11/23/24 11/24/24 11/24/24 18:59 06:59 18:59 Intake Total 1320 540 Output Total 300 100 Balance 1020 440 Intake: Oral 1320 540 Output: Urine 300 100 Post Void Residual 0 Other: Voiding Method Diaper Diaper Toilet Incontinent Incontinent Bedside Commode Diaper # Voids 6 1 # Bowel Movements 1 1 2 - Labs CBC & Chem 7: 11/24/24 11:05 11/24/24 11:05 Labs: Abnormal Lab Results - Last 24 Hours (Table) 11/23/24 11/23/24 11/23/24 Range/Units 12:27 17:15 18:45 POC Glucose (mg/dL) 148 H 176 H (70-110) mg/dL TSH 11.300 H (0.465-4.680) mIU/L 11/23/24 11/24/24 Range/Units 20:48 07:05 POC Glucose (mg/dL) 170 H 121 H (70-110) mg/dL TSH (0.465-4.680) mIU/L
--- NOTE | 2024-11-24 14:17 | MR ---
EXAMINATION TYPE: MR brain wo con DATE OF EXAM: 11/24/2024 1:47 PM COMPARISON: CT brain with 925 CLINICAL INDICATION: Female, 78 years old with history of AMS, confusion, AMS TECHNIQUE: Multiplanar, multiecho imaging on a 3.0 Eveline magnet is performed through the brain. Stud y is performed within 24 hours of arrival to the hospital.Multiplanar, multiecho imaging on a 3.0 Melissa la magnet is performed through the knee. IV Contrast: mL (None, if empty) FINDINGS: The craniovertebral junction is normal. The pituitary is normal. Diffusion-weighted imaging is performed. No abnormal hyperintensity is present to suggest an acute i ntracranial infarct or acute ischemic change. Patchy periventricular and deep white matter changes are present on inversion recovery and T2-weighte d sequences. Correlate for chronic white matter ischemic type changes. Some white matter changes appe ar to be within the brainstem. Ventricles and sulci are appropriate for the patient age. There is a prior right mastoidectomy. COMPARISON: White matter changes are similar to the CT findings. IMPRESSION: 1. Chronic appearing periventricular white matter and brainstem ischemic-type changes. [facility], , 11/24/2024 2:14 PM
[2024-11-24 17:25] LABS: Glucose,Whole Blood 119 mg/dL (70-110)
[2024-11-24] MEDS: ASPIRIN 81 MG PO SCH (18:21)
[2024-11-24 20:11] LABS: Glucose,Whole Blood 150 mg/dL (70-110)
[2024-11-24] MEDS: FAMOTIDINE 20 MG TAB PO SCH (21:46)
[2024-11-25 07:18] LABS: Glucose,Whole Blood 113 mg/dL (70-110)
--- NOTE | 2024-11-25 09:16 | P.PN ---
Subjective Progress Note Date: 11/24/24 Patient was seen for follow-up. Patient's daughter was also present today. Patient offers no new complaints, laying comfortably in the bed. Denies headache. Objective - Vital Signs Vital signs: Vital Signs Temp 97.5 F L 11/24/24 11:33 Pulse 80 11/24/24 11:33 Resp 15 11/24/24 11:33 BP 100/61 11/24/24 11:33 Pulse Ox 100 11/24/24 11:33 FiO2 Intake & Output 11/23/24 11/24/24 11/24/24 18:59 06:59 18:59 Intake Total 1320 540 240 Output Total 300 100 Balance 1020 440 240 Intake: Oral 1320 540 240 Output: Urine 300 100 Post Void Residual 0 Other: Voiding Method Diaper Diaper Toilet Incontinent Incontinent Bedside Commode Diaper # Voids 6 1 # Bowel Movements 1 1 2 - Exam Unchanged. - Labs CBC & Chem 7: 11/24/24 11:05 11/24/24 11:05 Labs: Abnormal Lab Results - Last 24 Hours (Table) 11/23/24 11/23/24 11/24/24 Range/Units 18:45 20:48 07:05 WBC (3.8-10.6) k/uL Neutrophils # (1.3-7.7) k/uL Lymphocytes # (1.0-4.8) k/uL BUN (7-17) mg/dL Creatinine (0.52-1.04) mg/dL Glucose (74-99) mg/dL POC Glucose (mg/dL) 170 H 121 H (70-110) mg/dL Total Bilirubin (0.2-1.3) mg/dL Total Protein (6.3-8.2) g/dL Albumin (3.5-5.0) g/dL TSH 11.300 H (0.465-4.680) mIU/L 11/24/24 11/24/24 11/24/24 Range/Units 11:05 11:05 11:36 WBC 14.9 H (3.8-10.6) k/uL Neutrophils # 8.1 H (1.3-7.7) k/uL Lymphocytes # 5.5 H (1.0-4.8) k/uL BUN 23 H (7-17) mg/dL Creatinine 1.10 H (0.52-1.04) mg/dL Glucose 153 H (74-99) mg/dL POC Glucose (mg/dL) 143 H (70-110) mg/dL Total Bilirubin 0.1 L (0.2-1.3) mg/dL Total Protein 6.0 L (6.3-8.2) g/dL Albumin 3.1 L (3.5-5.0) g/dL TSH (0.465-4.680) mIU/L 11/24/24 Range/Units 17:23 WBC (3.8-10.6) k/uL Neutrophils # (1.3-7.7) k/uL Lymphocytes # (1.0-4.8) k/uL BUN (7-17) mg/dL Creatinine (0.52-1.04) mg/dL Glucose (74-99) mg/dL POC Glucose (mg/dL) 119 H (70-110) mg/dL Total Bilirubin (0.2-1.3) mg/dL Total Protein (6.3-8.2) g/dL Albumin (3.5-5.0) g/dL TSH (0.465-4.680) mIU/L Assessment and Plan Assessment: * Altered mental status, with cognitive decline going on since back surgery in September 2024. Recently cognitive functions became much worse in the last few days. Exact cause uncertain, CVA ruled out. Rule out delirium/dementia. Rule out other metabolic causes. Examination is relatively nonfocal. * Diabetes * Hyperlipidemia * History of back surgery * History of small traumatic intracranial bleed 11/06/2024, treated conservatively Plan: * MRI of the brain without contrast, revealed chronic appearing periventricular white matter and brainstem ischemic type changes. I personally reviewed MRI. There is extensive, confluent bilateral periventricular and subcortical white matter disease including the brainstem, from significant small vessel disease. No acute process. * EEG evaluate for encephalopathy, rule out any epileptiform activity * Patient is currently on Keppra empirically since she had small traumatic brain bleed on 11/06/2024. If the EEG is negative, may taper off Keppra. Patient's cognitive problems started before she was started on Keppra. * Unsure, if lumbar puncture would be any informative. Will defer to the EEG, if shows significant encephalopathy and then may need it. * B12 656, folate 6.70, TSH 11.30, with free T4 0.94. IM to address hypothyroidism. We will start folate replacement. * Dr. Blaze Antonio to resume neurology service from Tuesday morning.
[2024-11-25 09:32] LABS: HCT 35.6 % (37.2-46.3); MCH 29.4 pg (27.0-32.0); MCHC 30.9 g/dL (32.0-37.0); MCV 95.2 FL (80.0-97.0); Mean Platelet Volume 10.5 FL (9.5-12.2); NRBC Per 100 WBC 0 X 10*3/uL (0.00-0.01); Platelet Count 402 X 10*3/uL (140-440); RBC 3.74 X 10*6/uL (4.10-5.20); RDW 14.5 % (11.5-14.5); WBC 13.69 X 10*3/uL (4.50-10.00)
[2024-11-25] MEDS: FOLIC ACID 1 MG TAB PO SCH (09:33)
[2024-11-25 09:43] LABS: ALT 9 U/L (8-44); AST 17 U/L (13-35); Alkaline Phosphatase 107 U/L (41-126); BUN/Creat Ratio 16.25 Ratio (12.00-20.00); Blood Urea Nitrogen 19.5 mg/dL (9.0-27.0); Calcium 8.7 mg/dL (8.7-10.3); Carbon Dioxide 27.1 mmol/L (21.6-31.8); Chloride 104 mmol/L (96-109); Chol/HDL Ratio 3.12 Ratio; Globulin 2.5 g/dL (1.6-3.3); Glucose 117 mg/dL (70-110); Potassium 4.3 mmol/L (3.5-5.5); Sodium 141 mmol/L (135-145); Total Bilirubin <0.2 mg/dL (0.3-1.2); Total Protein 5.5 g/dL (6.2-8.2)
[2024-11-25 10:38] LABS: Basophils # (M) 0.82 X 10*3/uL (0.00-0.10); Eosinophils # (M) 0.96 X 10*3/uL (0.04-0.35); Lymphocytes # (M) 5.07 X 10*3/uL (0.90-5.00); Neutrophils # (M) 5.75 X 10*3/uL (1.80-7.70); Neutrophils % (M) 42 %
[2024-11-25 12:16] LABS: Glucose,Whole Blood 118 mg/dL (70-110)
--- NOTE | 2024-11-25 12:25 | P.PN ---
Subjective Progress Note Date: 11/25/24 This is a pleasant 78 years old female who presents from home with her daughter at bedside which has been with a history. Patient presents because she fell from standing position on Tuesday and hit her head show went to [facility] mother found her to have a small bleed and she stayed in the hospital for 5 days, Also patient had difficulty walking and attributed to her to bad knees Medicare immobile without assistance but after she was sent home she was more confused although this was noticed since September when she had her back surgery that is why her daughter put her on skilled nursing complex where they have a skilled nurse and they were planning to follow-up with orthopedic team to fix her knee so we will be able to walk again Yesterday patient became really confused, she was picking the phone thinking its aggressive water trying to drink from it and also she was confused to the surrounding. The daughter felt she is really not herself so she brought her to the hospital Now she is fully awake and alert she thinks she is in [facility] she has a lot of disoriented towards time and person However she is appropriate she denies any double vision or slurred speech She complains from weakness in the right upper extremity but this is a chronic also per daughter from her shoulder problem On exam also it is noted that she has stiffness and weakness in her right lower extremity and the patient noticed a this is noted . Patient is afebrile hemodynamically stable. Labs were unremarkable, she has mild leukocytosis of 13.1 and mild creatinine elevation 1.[address] of the brain showing no mass hemorrhage or acute proces Chest x-ray showing interstitial prominence suspicious for bronchitis versus asthma or fluid overload 11/23. Patient seen and examined. Mental status has improved, family at the bedside, state patient is still having difficulty in word finding. 11/24. Patient seen and examined. Neurology evaluated, ordered MRI brain and EEG. Family at the bedside state patient is slightly doing better, no evidence of any slurred speech. Patient still has word finding difficulty 11/25. Patient seen and examined. MRI brain done showed chronic appearing periventricular white matter and brainstem ischemic type changes. EEG pending. Patient states she feels better. REVIEW OF SYSTEMS: CONSTITUTIONAL: No fever, no malaise,. CARDIOVASCULAR: No chest pain, no palpitations, no syncope. PULMONARY: No shortness of breath, no cough, GASTROINTESTINAL: No diarrhea, no nausea, no vomiting, no abdominal pain. NEUROLOGICAL: No headaches, no weakness, PHYSICAL EXAMINATION: GENERAL: The patient is alert and oriented x3, not in any acute distress. Well developed, well nourished. HEENT: Pupils are round and equally reacting to light. EOMI. No scleral icterus. No conjunctival pallor. Normocephalic, atraumatic. No pharyngeal erythema. No thyromegaly. CARDIOVASCULAR: S1 and S2 present. No murmurs, rubs, or gallops. PULMONARY: Chest is clear to auscultation, no wheezing or crackles. ABDOMEN: Soft, nontender, nondistended, normoactive bowel sounds. No palpable organomegaly. MUSCULOSKELETAL: No joint swelling or deformity. EXTREMITIES: No cyanosis, clubbing, or pedal edema. NEUROLOGICAL: Gross neurological examination did not reveal any focal deficits. SKIN: No rashes. Assessment and plan Acute metabolic encephalopathy Right lower extremity weakness Right upper extremity weakness chronic per patient and family seizure disorder on keppra Mild leukocytosis Mild acute kidney injury with unknown baseline. Generalized weakness Monitor vital signs Monitor CBC Monitor CMP Fall precaution Seizure precaution Continue Kera EEG ordered MRI brain done showed chronic appearing periventricular white matter and brainstem ischemic type changes. Neurology following PT OT consulted Labs and medication were reviewed.. Continue same treatment. Continue with symptomatic treatment. Resume home medication. Monitor labs and vitals. DVT and GI prophylaxis. Further recommendations as per clinical course of the patient Dictation was produced using [employer] dictation software. please excuse any grammatical, word or spelling errors. Objective - Vital Signs Vital signs: Vital Signs Temp 97.4 F L 11/25/24 11:26 Pulse 78 11/25/24 11:26 Resp 14 11/25/24 11:26 BP 106/68 11/25/24 11:26 Pulse Ox 98 11/25/24 11:26 FiO2 Intake & Output 11/24/24 11/25/24 11/25/24 18:59 06:59 18:59 Intake Total 240 270 Output Total 100 Balance 240 170 Intake: Oral 240 270 Output: Urine 100 Other: Voiding Method Toilet Toilet Bedside Commode Bedside Commode Diaper Diaper # Bowel Movements 2 - Labs CBC & Chem 7: 11/25/24 05:17 11/25/24 05:17 Labs: Abnormal Lab Results - Last 24 Hours (Table) 11/24/24 11/24/24 11/24/24 Range/Units 11:05 17:23 20:09 WBC (4.50-10.00) X 10*3/uL RBC (4.10-5.20) X 10*6/uL Hgb (12.0-15.0) g/dL Hct (37.2-46.3) % MCHC (32.0-37.0) g/dL Neutrophils # 8.1 H (1.3-7.7) k/uL Lymphocytes # 5.5 H (1.0-4.8) k/uL Lymphocytes # (Manual) (0.90-5.00) X 10*3/uL Monocytes # (Manual) (0.20-1.00) X 10*3/uL Eosinophils # (Manual) (0.04-0.35) X 10*3/uL Basophils # (Manual) (0.00-0.10) X 10*3/uL Est GFR (CKD-EPI) (>=60) Glucose (70-110) mg/dL POC Glucose (mg/dL) 119 H 150 H (70-110) mg/dL Hemoglobin A1c (<=6.0) % Total Bilirubin (0.3-1.2) mg/dL Total Protein (6.2-8.2) g/dL Albumin (3.8-4.9) g/dL Albumin/Globulin Ratio (1.60-3.17) Ratio Triglycerides (0.00-149.00) mg/dL VLDL Cholesterol, Calc (5.00-40.00) mg/dL 11/25/24 11/25/24 11/25/24 Range/Units 05:17 05:17 05:17 WBC 13.69 H (4.50-10.00) X 10*3/uL RBC 3.74 L (4.10-5.20) X 10*6/uL Hgb 11.0 L (12.0-15.0) g/dL Hct 35.6 L (37.2-46.3) % MCHC 30.9 L (32.0-37.0) g/dL Neutrophils # (1.3-7.7) k/uL Lymphocytes # (1.0-4.8) k/uL Lymphocytes # (Manual) 5.07 H (0.90-5.00) X 10*3/uL Monocytes # (Manual) 1.10 H (0.20-1.00) X 10*3/uL Eosinophils # (Manual) 0.96 H (0.04-0.35) X 10*3/uL Basophils # (Manual) 0.82 H (0.00-0.10) X 10*3/uL Est GFR (CKD-EPI) 47 L (>=60) Glucose 117 H (70-110) mg/dL POC Glucose (mg/dL) (70-110) mg/dL Hemoglobin A1c 6.7 H (<=6.0) % Total Bilirubin <0.2 L (0.3-1.2) mg/dL Total Protein 5.5 L (6.2-8.2) g/dL Albumin 3.0 L (3.8-4.9) g/dL Albumin/Globulin Ratio 1.20 L (1.60-3.17) Ratio Triglycerides 281.00 H (0.00-149.00) mg/dL VLDL Cholesterol, Calc 56.20 H (5.00-40.00) mg/dL 11/25/24 11/25/24 Range/Units 07:18 12:05 WBC (4.50-10.00) X 10*3/uL RBC (4.10-5.20) X 10*6/uL Hgb (12.0-15.0) g/dL Hct (37.2-46.3) % MCHC (32.0-37.0) g/dL Neutrophils # (1.3-7.7) k/uL Lymphocytes # (1.0-4.8) k/uL Lymphocytes # (Manual) (0.90-5.00) X 10*3/uL Monocytes # (Manual) (0.20-1.00) X 10*3/uL Eosinophils # (Manual) (0.04-0.35) X 10*3/uL Basophils # (Manual) (0.00-0.10) X 10*3/uL Est GFR (CKD-EPI) (>=60) Glucose (70-110) mg/dL POC Glucose (mg/dL) 113 H 118 H (70-110) mg/dL Hemoglobin A1c (<=6.0) % Total Bilirubin (0.3-1.2) mg/dL Total Protein (6.2-8.2) g/dL Albumin (3.8-4.9) g/dL Albumin/Globulin Ratio (1.60-3.17) Ratio Triglycerides (0.00-149.00) mg/dL VLDL Cholesterol, Calc (5.00-40.00) mg/dL
[2024-11-25 17:12] LABS: Glucose,Whole Blood 130 mg/dL (70-110)
[2024-11-25 20:08] LABS: Glucose,Whole Blood 127 mg/dL (70-110)
[2024-11-26 07:05] LABS: Glucose,Whole Blood 132 mg/dL (70-110)
[2024-11-26 12:21] LABS: Glucose,Whole Blood 132 mg/dL (70-110)
[2024-11-26 17:19] LABS: Glucose,Whole Blood 169 mg/dL (70-110)
--- NOTE | 2024-11-26 19:53 | P.PN ---
Subjective Progress Note Date: 11/26/24 I am seeing the patient for the first time during this hospital visit. Please refer to Dr. Yañez's note for further details. The patient daughter is at bedside and she stated that the patient presented to the hospital because of severe speech difficulty but feels her speech is drastically better. Patient has underlying history of confusion since her back surgery in September 2024. It seems that the patient had a fall and had traumatic brain bleed around 11/06/2024 and she stated it was in the thalamus and that was treated conservatively and was started on antiseizure medication but does not recall the name of antiseizure medication and she was on its being hospitalized at [facility] and was discharged with the medication but again she does not recall the medication. Feels she is doing better and denies of any focal deficits that is new. Objective - Vital Signs Vital signs: Vital Signs Temp 97.6 F 11/26/24 12:17 Pulse 73 11/26/24 12:17 Resp 18 11/26/24 12:17 BP 118/72 11/26/24 12:17 Pulse Ox 99 11/26/24 12:17 FiO2 Intake & Output 11/26/24 11/26/24 11/27/24 06:59 18:59 06:59 Other: Voiding Method Bedside Commode Diaper # Voids 1 2 - Exam General: Lying in bed and is not in acute distress. Neuro: Patient is awake alert oriented to self and she states she is in the hospital. On the first attempt she stated that the year is 1924 and upon correction and then I asked her the same question again and she correctly stated the current year. She is able to name objects correctly such as pen and glasses. She is able to name correctly the current state, the [facility] as well as the [place]. She is following simple commands. No aphasia. No facial weakness. No dysarthria. The strength right upper extremity is limited because of shoulder issues but was able to lift the above gravity. Left upper extremities 5 out of 5. - Labs CBC & Chem 7: 11/25/24 05:17 11/25/24 05:17 Labs: Abnormal Lab Results - Last 24 Hours (Table) 11/25/24 11/26/24 11/26/24 Range/Units 20:06 07:04 12:20 POC Glucose (mg/dL) 127 H 132 H 132 H (70-110) mg/dL 11/26/24 Range/Units 17:18 POC Glucose (mg/dL) 169 H (70-110) mg/dL Assessment and Plan Assessment: * Altered mental status with speech difficulty, with cognitive decline going on since back surgery in September 2024. Recently cognitive functions became much worse in the last few days. Exact cause uncertain, CVA ruled out. Rule out delirium/dementia. Rule out other metabolic causes. Examination is relatively nonfocal and speech is drastically better * Diabetes * Hyperlipidemia * History of back surgery * History of small traumatic intracranial bleed 11/06/2024, treated conservatively Plan: * MRI of the brain without contrast, revealed chronic appearing periventricular white matter and brainstem ischemic type changes. I personally reviewed MRI. There is extensive, confluent bilateral periventricular and subcortical white matter disease including the brainstem, from significant small vessel disease. No acute process. * EEG evaluate: Preliminary is moderate encephalopathy but no seizure or discharges. * Patient is currently on Keppra empirically since she had small traumatic brain bleed on 11/06/2024. She is on Keppra 500 mg twice daily. Patient's cognitive problems started before she was started on Keppra. I spoke with the daughter and we agreed that will continue the same medication and upon discharge patient to follow-up with her outpatient neurologist who she is can be seen him for the first time next week Dr. Lloyd and will defer modification of the medication to her neurologist. According to the patient daughter she stated that she was discharged with antiseizure medication from [facility] and there is no instruction on weaning the medication. * If patient has any further confusion recommend repeat EEG or prolonged EEG and that can be considered as an outpatient and will defer that management to her neurologist as an outpatient * Recommend neuropsych evaluation as an outpatient for her memory issues * B12 656, folate 6.70, TSH 11.30, with free T4 0.94. IM to address hypothyroidism. We will start folate replacement. * Defer the rest of the medical management to primary and other specialist. Discussed with the patient and her daughters at bedside Otherwise no additional neurological workup. Will sign off. Please reconsult if needed. Time with Patient: Less than 30
[2024-11-26 20:00] LABS: Glucose,Whole Blood 119 mg/dL (70-110)
--- NOTE | 2024-11-27 05:01 | EEG ---
ELECTROENCEPHALOGRAM REPORT CLINICAL HISTORY: This is a 78-year-old woman with altered mental status. The video EEG is obtained to evaluate for seizure epileptiform activity. RELEVANT MEDICATIONS: Keppra. EEG TYPE: Routine 21-channel EEG with video using the 10/20 electrode placement system. DESCRIPTION: Wakefulness is only obtained. During awake state, the background consists of low-to- moderate voltage of 6.5 to 7.5 hertz activity intermixed with delta activity. There was no physiological stage 2 sleep architecture. There is no focal slowing. Interictal and ictal is none. ACTIVATION PROCEDURE: Photic stimulation did not evoke a posterior driving response. There is no abnormality during the photic stimulation. Hyperventilation is not performed. CLINICAL INTERPRETATION: This is an abnormal routine EEG. The background slowing is suggestive of moderate encephalopathy. There is no focal slowing, epileptiform discharges or seizure on the EEG. Clinical correlation is recommended. RUPERT / KENNEDY: [id number] /
[2024-11-27 07:15] LABS: Glucose,Whole Blood 121 mg/dL (70-110)
[2024-11-27 07:20] VITALS: RESP 17
--- NOTE | 2024-11-27 09:20 | P.PN ---
Subjective Progress Note Date: 11/26/24 This is a pleasant 78 years old female who presents from home with her daughter at bedside which has been with a history. Patient presents because she fell from standing position on Tuesday and hit her head show went to [facility] mother found her to have a small bleed and she stayed in the hospital for 5 days, Also patient had difficulty walking and attributed to her to bad knees Medicare immobile without assistance but after she was sent home she was more confused although this was noticed since September when she had her back surgery that is why her daughter put her on [facility] where they have a skilled nurse and they were planning to follow-up with orthopedic team to fix her knee so we will be able to walk again Yesterday patient became really confused, she was picking the phone thinking its aggressive water trying to drink from it and also she was confused to the surrounding. The daughter felt she is really not herself so she brought her to the hospital Now she is fully awake and alert she thinks she is in [facility] she has a lot of disoriented towards time and person However she is appropriate she denies any double vision or slurred speech She complains from weakness in the right upper extremity but this is a chronic also per daughter from her shoulder problem On exam also it is noted that she has stiffness and weakness in her right lower extremity and the patient noticed a this is noted . Patient is afebrile hemodynamically stable. Labs were unremarkable, she has mild leukocytosis of 13.1 and mild creatinine elevation 1.[address] of the brain showing no mass hemorrhage or acute proces Chest x-ray showing interstitial prominence suspicious for bronchitis versus asthma or fluid overload 11/23. Patient seen and examined. Mental status has improved, family at the bedside, state patient is still having difficulty in word finding. 11/24. Patient seen and examined. Neurology evaluated, ordered MRI brain and EEG. Family at the bedside state patient is slightly doing better, no evidence of any slurred speech. Patient still has word finding difficulty 11/25. Patient seen and examined. MRI brain done showed chronic appearing periventricular white matter and brainstem ischemic type changes. EEG pending. Patient states she feels better. 11/26/2024 Patient is seen in follow-up with neurology following scheduled to undergo EEG. Patient reports to feeling well and status of mentation has significantly improved and at baseline. Plan will be for patient to return to [facility] where she resides. Patient is afebrile with no reported chest pain or shortness of breath. REVIEW OF SYSTEMS: CONSTITUTIONAL: No fever, no malaise,. CARDIOVASCULAR: No chest pain, no palpitations, no syncope. PULMONARY: No shortness of breath, no cough, GASTROINTESTINAL: No diarrhea, no nausea, no vomiting, no abdominal pain. NEUROLOGICAL: No headaches, no weakness, PHYSICAL EXAMINATION: GENERAL: The patient is alert and oriented x3, not in any acute distress. Well developed, well nourished. HEENT: Pupils are round and equally reacting to light. EOMI. No scleral icterus. No conjunctival pallor. Normocephalic, atraumatic. No pharyngeal erythema. No thyromegaly. CARDIOVASCULAR: S1 and S2 present. No murmurs, rubs, or gallops. PULMONARY: Chest is clear to auscultation, no wheezing or crackles. ABDOMEN: Soft, nontender, nondistended, normoactive bowel sounds. No palpable organomegaly. MUSCULOSKELETAL: No joint swelling or deformity. EXTREMITIES: No cyanosis, clubbing, or pedal edema. NEUROLOGICAL: Gross neurological examination did not reveal any focal deficits. SKIN: No rashes. Assessment and plan Acute metabolic encephalopathy Right lower extremity weakness Right upper extremity weakness chronic per patient and family seizure disorder on keppra Mild leukocytosis Mild acute kidney injury with unknown baseline. Generalized weakness Plan: Monitor vital signs Monitor CBC Monitor CMP Fall precaution Seizure precaution Continue Keppra EEG ordered and pending and if negative neurology to discuss further with c ontinuing Keppra and possibly discontinuing it in the outpatient setting with follow-up from neurology outpatient MRI brain done showed chronic appearing periventricular white matter and brainstem ischemic type changes. Neurology following PT OT consulted Possible discharge planning in the next 24 hours The impression and plan of care has been dictated by Sofia Morton, Nurse Practitioner as directed. Dr. Beverly MD I have performed a history and examination and MDM of this patient, discussed the same with the dictator, and agree with the dictator's assessment and plan as written ,documented as a scribe. Based on total visit time, I have performed more than 50% of the visit. Objective - Vital Signs Vital signs: Vital Signs Temp 98.0 F 11/26/24 07:01 Pulse 81 11/26/24 07:01 Resp 18 11/26/24 07:01 BP 117/76 11/26/24 07:01 Pulse Ox 97 11/26/24 07:51 FiO2 Intake & Output 11/25/24 11/26/24 11/26/24 18:59 06:59 18:59 Intake Total 540 Balance 540 Intake: Oral 540 Other: Voiding Method Toilet Bedside Commode Bedside Commode Diaper Diaper # Voids 4 1 1 - Labs CBC & Chem 7: 11/25/24 05:17 11/25/24 05:17 Labs: Abnormal Lab Results - Last 24 Hours (Table) 11/25/24 11/25/24 11/25/24 Range/Units 12:05 17:11 20:06 POC Glucose (mg/dL) 118 H 130 H 127 H (70-110) mg/dL 11/26/24 Range/Units 07:04 POC Glucose (mg/dL) 132 H (70-110) mg/dL
[2024-11-27 12:12] LABS: Glucose,Whole Blood 132 mg/dL (70-110)
[2024-11-27 13:23] VITALS: PULSE 81; TEMP 97.3
--- NOTE | 2024-11-27 13:39 | P.DS ---
Providers Date of admission: 11/22/24 15:32 Expected date of discharge: 11/27/24 Attending physician: Flavio Cavazos MD Consults: 11/22/24 15:30 Consult Physician Urgent Consulting Provider: Kori Yañez Consult Reason/Comments: acute encephalopathy, dysarthria Do you want consulting provider notified?: Yes Primary care physician: Gio Martins Hospital Course: Final diagnosis Acute metabolic/toxic encephalopathy possibly secondary to medication effect from Keppra Right lower extremity weakness with recurrent falls Right upper extremity weakness chronic per patient and family seizure disorder on keppra Mild leukocytosis, improved likely reactive Mild acute kidney injury with unknown baseline. Generalized weakness GI prophylaxis DVT prophylaxis Full code Discharge disposition Patient is being discharged in a stable condition with guarded prognosis to [facility]. Patient will follow-up with Dr. Gio Martins in the outpatient setting upon discharge. Patient is to continue with Keppra and close outpatient follow-up with neurology as scheduled. Total time taken is greater than 35 minutes. Hospital course This is a 78-year-old female who was recently admitted with altered mental status, concerns for acute metabolic/toxic encephalopathy possibly secondary to Keppra. Patient evaluated by neurology and will continue on the Keppra with close outpatient follow-up with her neurologist to discuss possibly weaning. Patient with generalized weakness increased risk for falling does live at [facility] and family is arranging for increase services to be provided to her. Patient's mentation is baseline and improved and has been cleared by neurology. Please refer to other consultation notes for further HPI. Currently no reports of chest pain, shortness of breath, or palpitations. Patient is afebrile. No reports of nausea or vomiting and patient is tolerating diet. Patient will be discharged to [facility] today. High risk for readmissions given significant comorbidities Physical exam: Gen: This is a 78-year-old female who is awake, alert and oriented x 1-2 baseline, well-developed, thin build, elderly appearing HEENT: Head is atraumatic, normocephalic. Pupils equal, round. Sclerae is anicteric. NECK: Supple. No JVD. No lymphadenopathy. No thyromegaly. LUNGS: Clear to auscultation. No wheezes or rhonchi. No intercostal retractions. HEART: Regular rate and rhythm. No murmur. ABDOMEN: Soft. Bowel sounds are present. No masses. No tenderness. EXTREMITIES: No pedal edema. No calf tenderness. NEUROLOGICAL: Patient is awake, alert and oriented x1-2. Cranial nerves 2 through 12 are grossly intact. Diffusely weak Please refer to medication reconciliation sheet for a list of medications. The impression and plan of care has been dictated by Sofia Morton, Nurse Practitioner as directed. Dr. Yaquelin MD I have performed a history and examination and MDM of this patient, discussed the same with the dictator, and agree with the dictator's assessment and plan as written ,documented as a scribe. Based on total visit time, I have performed more than 50% of the visit. Patient Condition at Discharge: Fair Plan - Discharge Summary Discharge Rx Participant: Yes New Discharge Prescriptions: New Aspirin 81 mg PO DAILY #30 tab Folic Acid 1 mg PO DAILY #30 tab Continue levETIRAcetam [Keppra] 500 mg PO Q12HR Nortriptyline [Pamelor] 25 mg PO HS Simvastatin [Zocor] 20 mg PO HS Omeprazole [PriLOSEC] 40 mg PO DAILY Acetaminophen Tab [Tylenol] 1,000 mg PO Q6HR PRN PRN Reason: Pain Or Fever > 100.5 Cholecalciferol [Vitamin D3 (25 Mcg = 1000 Iu)] 50 mcg PO DAILY Furosemide [Lasix] 20 mg PO MOWEFR carvediloL [Coreg] 3.125 mg PO BID Discharge Medication List Acetaminophen Tab [Tylenol] 1,000 mg PO Q6HR PRN 11/22/24 [History] Cholecalciferol [Vitamin D3 (25 Mcg = 1000 Iu)] 50 mcg PO DAILY 11/22/24 [History] Furosemide [Lasix] 20 mg PO MOWEFR 11/22/24 [History] Nortriptyline [Pamelor] 25 mg PO HS 11/22/24 [History] Omeprazole [PriLOSEC] 40 mg PO DAILY 11/22/24 [History] Simvastatin [Zocor] 20 mg PO HS 11/22/24 [History] carvediloL [Coreg] 3.125 mg PO BID 11/22/24 [History] levETIRAcetam [Keppra] 500 mg PO Q12HR 11/22/24 [History] Aspirin 81 mg PO DAILY #30 tab 11/27/24 [Rx] Folic Acid 1 mg PO DAILY #30 tab 11/27/24 [Rx] Follow up Appointment(s)/Referral(s): Nonstaff,Physician [REFERRING] - 1-2 days Activity/Diet/Wound Care/Special Instructions: Patient returning to [facility] as tolerated Follow-up with neurology outpatient Continue taking medications as prescribed and discuss with neurologist about weaning Keppra Discharge Disposition: HOME WITH HOME HEALTH SERVICES
[2024-11-27 14:03] VITALS: BP 114/74
== END 2024-11-27 18:17 | disposition home health service (06) ==
LOC: EDBD → EC 11:36 → 5NMEDONC 15:32
PROVIDERS: ADMIT Internal Medicine; ATTEND Internal Medicine
DX: G92.8 Other toxic encephalopathy (principal); R53.1 Weakness; R29.6 Repeated falls; D72.829 Elevated white blood cell count, unspecified; N17.9 Acute kidney failure, unspecified; G40.909 Epilepsy, unspecified, not intractable, without status epilepticus; E78.5 Hyperlipidemia, unspecified; F03.90 Unspecified dementia, unspecified severity, without behavioral disturbance, psychotic disturbance, mood disturbance, and anxiety; E11.9 Type 2 diabetes mellitus without complications; I50.9 Heart failure, unspecified; S06.30AD Unspecified focal traumatic brain injury with loss of consciousness status unknown, subsequent encounter; W18.30XD Fall on same level, unspecified, subsequent encounter; Z79.899 Other long term (current) drug therapy; Z87.891 Personal history of nicotine dependence
CPT/HCPCS: 96376; 96372 ×4; 96375 ×2; 96374; 99285; 36415; 94760 ×2; 95816; 93005; 97530 ×2; 97161; 97165; 84439; 83880; 80061; 80053 ×3; 80048; 80177; 84443; 82607; 82746; 83605; 84484; 85025 ×4; 85610; 85730; 81001; 83036; 84145; 71046; 70450; 70551; G0378 ×6; J1200; J1644 ×4; J1100; J2765; J3490 ×2

== ENCOUNTER 2024-12-16 13:36 | Emergency (ER) | payer MEDICARE ==
[2024-12-16 13:49] VITALS: PULSE 82; RESP 18
--- NOTE | 2024-12-16 14:01 | ED ---
General Adult HPI - General Chief complaint: Fall Stated complaint: Fall-R hip pain Time Seen by Provider: 12/16/24 13:38 Source: patient, RN notes reviewed Mode of arrival: EMS Limitations: no limitations - History of Present Illness Initial comments: Patient is a 79-year-old female present to the emergency department with concerns with fall. Patient had a fall yesterday and did strike her head however she is not worried about that. No loss of consciousness. No significant discomfort. No weakness or confusion. No neck or back pain. Patient fell again today and landed on her right hip. Patient does have some right hip discomfort with limited range of motion of this. Patient does have history of previous right hip replacement. Patient states both times she fell because her knees gave out. Patient states this is a chronic condition for her and unchanged. Patient does not feel she needs any further workup regarding that as long as her hip looks good. Patient is agreeable to imaging of her head as well. - Related Data Home Medications Medication Instructions Recorded Confirmed Acetaminophen Tab [Tylenol] 1,000 mg PO Q6HR PRN 11/22/24 11/22/24 Cholecalciferol [Vitamin D3 (25 50 mcg PO DAILY 11/22/24 11/22/24 Mcg = 1000 Iu)] Furosemide [Lasix] 20 mg PO MOWEFR 11/22/24 11/22/24 Nortriptyline [Pamelor] 25 mg PO HS 11/22/24 11/22/24 Omeprazole [PriLOSEC] 40 mg PO DAILY 11/22/24 11/22/24 Simvastatin [Zocor] 20 mg PO HS 11/22/24 11/22/24 carvediloL [Coreg] 3.125 mg PO BID 11/22/24 11/22/24 levETIRAcetam [Keppra] 500 mg PO Q12HR 11/22/24 11/22/24 Previous Rx's Medication Instructions Recorded Aspirin 81 mg PO DAILY #30 tab 11/27/24 Folic Acid 1 mg PO DAILY #30 tab 11/27/24 Allergies Allergy/AdvReac Type Severity Reaction Status Date / Time No Known Allergies Allergy Verified 11/22/24 16:38 Review of Systems ROS Statement: Those systems with pertinent positive or pertinent negative responses have been documented in the HPI. ROS Other: All systems not noted in ROS Statement are negative. Constitutional: Denies: fever Eyes: Denies: eye pain ENT: Denies: ear pain Respiratory: Denies: dyspnea Cardiovascular: Denies: chest pain Gastrointestinal: Denies: abdominal pain Musculoskeletal: Reports: as per HPI. Denies: back pain Neurological: Denies: weakness Past Medical History Past Medical History: Dementia, Diabetes Mellitus Additional Past Medical History / Comment(s): CHF History of Any Multi-Drug Resistant Organisms: None Reported Past Psychological History: No Psychological Hx Reported Smoking Status: Former smoker Past Alcohol Use History: None Reported Past Drug Use History: None Reported General Exam Limitations: no limitations General appearance: alert, in no apparent distress Head exam: Present: other (Right forehead and periorbital ecchymosis) Eye exam: Present: normal appearance, PERRL, EOMI ENT exam: Present: normal oropharynx Neck exam: Present: normal inspection. Absent: tenderness Respiratory exam: Present: normal lung sounds bilaterally Cardiovascular Exam: Present: regular rate, normal rhythm Expanded Peripheral pulses: 2+: Posterior Tibialis (R), Dorsalis Pedis (R) GI/Abdominal exam: Present: soft. Absent: tenderness Extremities exam: Present: tenderness (Mild tenderness anterior right hip. Distally the extremity is neurovascular intact. Hip is internally rotated and slightly shortened) Neurological exam: Present: alert, oriented X3, CN II-XII intact. Absent: motor sensory deficit Expanded Neurological exam: Present: protecting the airway Patient oriented to: Present: person, place, time Speech: Present: fluid speech Cranial nerves: EOM's Intact: Normal Sensory exam: Upper Extremity Light Touch: Normal, Lower Extremity Light Touch: Normal Motor strength exam: RUE: 5, LUE: 5, RLE: 5, LLE: 5 Eye Response: (4) open spontaneously Motor Response: (6) obeys commands Verbal Response: (5) oriented Psychiatric exam: Present: normal affect, normal mood Skin exam: Present: normal color Course Vital Signs 12/16/24 12/16/24 13:44 14:47 Temperature 97.7 F Pulse Rate 82 82 Respiratory 18 18 Rate Blood Pressure 144/77 162/76 O2 Sat by Pulse 99 93 L Oximetry Medical Decision Making - Medical Decision Making MDM back was pt. sent in by a medical professional or institution (, PA, PRODUCER DIRECTOR, urgent care, hospital, or snf...) When possible be specific @ -No Did you speak to anyone other than the patient for history (EMS, parent, family, police, friend...)? What history was obtained from this source @ -Family arrives and states patient does not normally walk very much and we do not need to attempt ambulation with her Did you review nursing and triage notes (agree or disagree)? Why? @ -I reviewed and agree with nursing and triage notes Were old charts reviewed (outside hosp., previous admission, EMS record, old EKG, old radiological studies, urgent care reports/EKG's, snf records)? Report findings @ -No old charts were reviewed Differential Diagnosis (chest pain, altered mental status, abdominal pain women, abdominal pain men, vaginal bleeding, weakness, fever, dyspnea, syncope, headache, dizziness, GI bleed, back pain, seizure, CVA, palpatations, mental health, musculoskeletal)? @ -Differential Musculoskeletal Muscular strain, contusion, ligament sprain, fracture, arthritis, septic arthritis, bursitis, cellulitis, muscle spasm, nerve compression, DVT, arterial occlusion, herpes zoster, electrolyte abnormality, tumor.... This is not meant to be in all inclusive list EKG interpreted by me (3pts min.). @ -As above X-rays interpreted by me (1pt min.). @ -Right hip x-ray shows postoperative change. No evidence of fracture CT interpreted by me (1pt min.). @ -CT scan of brain and cervical spine without acute abnormality U/S interpreted by me (1pt. min.). @ -None done What testing was considered but not performed or refused? (CT, X-rays, U/S, labs)? Why? @ -None What meds were considered but not given or refused? Why? @ -None Did you discuss the management of the patient with other professionals (professionals i.e. Dr., PA, PRODUCER DIRECTOR, lab, RT, psych nurse, nephrology social worker, rec therapist, teacher, facilities officer, case investigator)? Give summary @ -No Was smoking cessation discussed for >3mins.? @ -No Was critical care preformed (if so, how long)? @ -No Were there social determinants of health that impacted care today? How? (Homelessness, low income, unemployed, alcoholism, drug addiction, transportation, low edu. Level, literacy, decrease access to med. care, detention, rehab)? @ -No Was there de-escalation of care discussed even if they declined (Discuss DNR or withdrawal of care, Hospice)? DNR status @ -No What co-morbidities impacted this encounter? (DM, HTN, Smoking, COPD, CAD, Cancer, CVA, ARF, Chemo, Hep., AIDS, mental health diagnosis, sleep apnea, morbid obesity)? @ -None Was patient admitted / discharged? Hospital course, mention meds given and route, prescriptions, significant lab abnormalities, going to OR and other pertinent info. @ -Patient presents with fall with concern for hip discomfort. X-rays unremarkable. Patient also had recent fall with facial ecchymosis. Head CT unremarkable. Patient will be discharged and recommended follow-up. Patient reevaluated. Patient and family updated. Undiagnosed new problem with uncertain prognosis? @ -No Drug Therapy requiring intensive monitoring for toxicity (Heparin, Nitro, Insulin, Cardizem)? @ -No Were any procedures done? @ -No Diagnosis/symptom? @ -Fall, hip contusion, head contusion Acute, or Chronic, or Acute on Chronic? @ -Acute on chronic, acute, acute Uncomplicated (without systemic symptoms) or Complicated (systemic symptoms)? @ -Default Side effects of treatment? @ -No Exacerbation, Progression, or Severe Exacerbation? @ -No Poses a threat to life or bodily function? How? (Chest pain, USA, DC, pneumonia, PE, COPD, DKA, ARF, appy, cholecystitis, CVA, Diverticulitis, Homicidal, Suicidal, threat to staff... and all critical care pts) @ -No Disposition Clinical Impression: Fall Disposition: HOME SELF-CARE Condition: Stable Instructions (If sedation given, give patient instructions): Fall Prevention for Older Adults (ED) Additional Instructions: Please do follow-up with your primary care physician in the next couple of days for recheck. [id number] Tylenol as needed. Return for increased pain, weakness, unable to take care of self, worsening symptoms or other concerns. Is patient prescribed a controlled substance at d/c from ED?: No Referrals: Gio Martins MD [Primary Care Provider] - 1-2 days Time of Disposition: 15:35
--- NOTE | 2024-12-16 14:46 | XR ---
EXAMINATION TYPE: XR Hip RT and AP Pelvis DATE OF EXAM: 12/16/2024 2:37 PM COMPARISON: None. CLINICAL INDICATION: Female, 79 years old with history of fall; H TECHNIQUE: XR Hip RT and AP Pelvis; hip was examined in the frontal and lateral projections and a AP pelvis. FINDINGS: Right hip arthroplasty without definite periprosthetic lucency or acute fracture. Severe le ft hip degenerative osteophytic changes with near complete joint space loss and evidence of subcondyl ar sclerosis, cystic changes and overlying ossified formation. Partially visualized prior vertebral b mauricio augmentation procedure involving the lumbar spine at multiple levels. IMPRESSION: No acute fracture or dislocation. Right hip arthroplasty without acute hardware abnormality. [facility], , 12/16/2024 2:43 PM
[2024-12-16] MEDS: KETOROLAC 15 MG/ML 1 ML VIAL IM STA (15:20)
[2024-12-16] MEDS: MORPHINE SULFATE 4 MG/ML SYRINGE IM STA (15:23)
--- NOTE | 2024-12-16 15:30 | CT ---
EXAMINATION TYPE: CT brain cspine wo con DATE OF EXAM: 12/16/2024 2:52 PM COMPARISON: None. CLINICAL INDICATION: Female, 79 years old with history of fall; multiple falls TECHNIQUE: Brain: Multiple axial CT images of the brain were obtained without IV contrast. Cspine: Axial CT images from the skull base to the inferior aspect of T2 we obtained without intraven ous contrast. Coronal and sagittal reformatted images were also reviewed. . CT DLP: 1228.8 mGycm, Automated exposure control for dose reduction was used. FINDINGS: Brain: Extra-axial spaces: No abnormal extra-axial fluid collections. Ventricular system: Dilatation in proportion to cerebral atrophy. Cerebral parenchyma: No acute intraparenchymal hemorrhage or mass effect. Scattered hypoattenuating areas are seen within the white matter. Cerebellum: Unremarkable. Mass effect: No evidence of midline shift. Intracranial vasculature: unremarkable Soft tissues: Normal. Calvarium/osseous structures: No depressed skull fracture. Paranasal sinuses and mastoid air cells: Clear. Visualized orbits: Bilateral aphakia Cervical spine: Fracture: None. Osseous structures: Osseous structures appear demineralized. Multilevel mild intervertebral disc spac e loss. Cervical spinal vertebral body heights appear maintained. Vertebral alignment: Unremarkable. Spinal canal/Neural Foramina: Multilevel facet arthropathy/uncovertebral hypertrophy contribute towar ds varying degrees of neural foraminal narrowing at multiple levels. No evidence of high-grade spinal canal stenosis. Evaluate for spinal canal limited due to streak artifact however. Neck soft tissues: Prevertebral soft tissues are within normal limits. Other: The airway is patent. The lung apices are clear. IMPRESSION: 1. No acute intracranial process. 2. No acute fracture or traumatic subluxation of the cervical spine. [facility], , 12/16/2024 3:27 PM
[2024-12-16 15:54] VITALS: BP 130/96; TEMP 98.5
[2024-12-16] MEDS: ACET/COD 300 MG/30 MG STARTER PACK 6 TAB BTL PO STA (15:56)
== END 2024-12-16 16:05 | disposition home or self-care (01) ==
LOC: EC 13:36
DX: M25.551 Pain in right hip (principal); Z87.891 Personal history of nicotine dependence; W19.XXXA Unspecified fall, initial encounter
CPT/HCPCS: 73502; 72125; 70450; 99284; 96372; J1885